=== PATIENT | female | born 1980 | race Hispanic/Latino ===

== ENCOUNTER 2017-11-18 08:14 | Emergency (ER) | payer OTHER ==
[2017-11-18] MEDS ORDERED: TETANUS & DIPHTHERIA TOX,ADULT 0.5 ML VIAL ONE (08:58)
[2017-11-18] MEDS ORDERED: IBUPROFEN 400 MG TAB ONE (09:25)
--- NOTE | 2017-11-18 09:26 | EDPHYS ---
Physician Documentation [facility] Name: Maria Esther Das Age: 37 yrs Sex: Female : 1980 Arrival Date: 11/18/2017 Time: 08:19 Bed 20 Private MD: ED Physician Syed Philip HPI: 11/18 08:52 This 37 yrs old Female presents to ER via Ambulatory with complaints of jr8 Puncture To Foot. 08:52 The patient has a laceration occurred outdoors. The laceration(s) is(are) located on jr8 the left foot. Onset: The symptoms/episode began/occurred acutely, yesterday. Associated signs and symptoms: The patient has no apparent associated signs or symptoms. The patient has not experienced similar symptoms in the past. The patient has not recently seen a physician. Patient stated that she was walking out in yard cleaning up debris. Stated that she felt nail go through shoe and into foot . 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 - Social history:: Smoking status: Patient/guardian denies using tobacco. ROS: 08:52 Eyes: Negative for injury, pain, redness, and discharge, ENT: Negative for injury, jr8 pain, and discharge, Neck: Negative for injury, pain, and swelling, Cardiovascular: Negative for chest pain, palpitations, and edema, Respiratory: Negative for shortness of breath, cough, wheezing, and pleuritic chest pain, Abdomen/GI: Negative for abdominal pain, nausea, vomiting, diarrhea, and constipation, Back: Negative for injury and pain, Skin: Negative for injury, rash, and discoloration, Neuro: Negative for headache, weakness, numbness, tingling, and seizure. 08:52 MS/extremity: Positive for decreased range of motion, pain, puncture, swelling, tenderness, of the left foot. Exam: 08:52 Cardiovascular: Regular rate and rhythm with a normal S1 and S2. No gallops, murmurs, jr8 or rubs. Normal PMI, no JVD. No pulse deficits. Respiratory: Lungs have equal breath sounds bilaterally, clear to auscultation and percussion. No rales, rhonchi or wheezes noted. No increased work of breathing, no retractions or nasal flaring. Skin: Warm, dry with normal turgor. Normal color with no rashes, no lesions, and no evidence of cellulitis. Neuro: Awake and alert, GCS 15, oriented to person, place, time, and situation. Cranial nerves II-XII grossly intact. Motor strength 5/5 in all extremities. Sensory grossly intact. Cerebellar exam normal. Normal gait. 08:52 Musculoskeletal/extremity: Extremities: grossly normal except: noted in the left foot: puncture noted to bottom of left foot near forefoot. No exit wound. Moderate tenderness to foot. Swelling noted , ROM: intact in all extremities, full active range of motion, full passive range of motion, limited active range of motion due to pain, limited passive range of motion due to pain, Circulation is intact in all extremities. Sensation intact. Vital Signs: 08:53 BP 118 / 82; Pulse 86; Resp 18; Pulse Ox 100% on R/A; Weight 76.2 kg; Height 5 ft. 3 em in. (160.02 cm); Pain 8/10; 09:50 BP 116 / 75; Pulse 84; Resp 18; Temp 97.6(TE); Pulse Ox 97% on R/A; Pain 8/10; em 08:53 Body Mass Index 29.76 (76.20 kg, 160.02 cm) em MDM: 08:38 Patient medically screened. jr8 09:24 Data reviewed: vital signs, nurses notes, radiologic studies, plain films, and as a jr8 result, I will discharge patient. Data interpreted: Pulse oximetry: on room air is 100 %. Interpretation: normal. Counseling: I had a detailed discussion with the patient and/or guardian regarding: the historical points, exam findings, and any diagnostic results supporting the discharge/admit diagnosis, radiology results, the need for outpatient follow up, a electronic test technician, to return to the emergency department if symptoms worsen or persist or if there are any questions or concerns that arise at home. ED course: Discussed with patient that she will need close follow up with podiatry. If she gets worse to come back for further evaluation . 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 Exp: em 02/24/2020. Lot #: [id number]. } Route: IM; Site: right deltoid; 09:28 Follow up: Response: No adverse reaction em 09:30 Drug: Ibuprofen 800 mg Route: PO; em 09:55 Follow up: Response: No adverse reaction em Disposition: 10:09 Co-signature as Attending Physician, Syed Philip MD I agree with the assessment and kdr plan of care. Disposition: 11/18/17 09:26 Discharged to Home. Impression: Puncture wound without foreign body, left foot. - Condition is Stable. - Discharge Instructions: Puncture Wound. - Prescriptions for Clindamycin HCl 300 mg Oral Capsule - take 1 capsule by ORAL route every 6 hours for 10 days; 40 capsule. Levaquin 500 mg Oral Tablet - take 1 tablet by ORAL route once daily for 7 days; 7 tablet. Tylenol- Codeine #3 300-30 mg Oral Tablet - take 2 tablet by ORAL route every 6 hours As needed; 30 tablet. - Medication Reconciliation Form, Thank You Letter, Antibiotic Education, Prescription Opioid Use form. - Follow up: Raul Tong DPM; When: 2 - 3 days; Reason: Wound Recheck, Recheck today's complaints, Continuance of care, Re-evaluation by your physician. - Problem is new. - Symptoms have improved. Signatures: Dispatcher [employer] EDSyed Gomes MD MD kdr Munoz, Edgar, AGRONOMY PROFESSOR AGRONOMY PROFESSOR Jah Hawkins PA PA jr8 Aurelio Jansen, RN RN hj
--- NOTE | 2017-11-18 09:26 | ER ---
Nurse's Notes [facility] Name: Maria Esther Das Age: 37 yrs Sex: Female : 1980 Arrival Date: 11/18/2017 Time: 08:19 Bed 20 Private MD: Diagnosis: Puncture wound without foreign body, left foot Presentation: 11/18 08:50 Presenting complaint: Patient states: stepped on nail last night at 1800 with left em foot, was wearing footwear, c/o pain now. Transition of care: patient was not received from another setting of care. Complicating Factors: There are no complicating factors for this patient. Onset of symptoms was November 17, 2017. Initial Sepsis Screen: Does the patient meet any 2 criteria? No. Patient's initial sepsis screen is negative. Does the patient have a suspected source of infection? No. Patient's initial sepsis screen is negative. Care prior to arrival: None. 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 - Social history:: Smoking status: Patient/guardian denies using tobacco. Screenin:52 Abuse screen: Denies threats or abuse. Nutritional screening: No deficits noted. em Tuberculosis screening: No symptoms or risk factors identified. Fall Risk None identified. Assessment: 08:50 General: Appears in no apparent distress. uncomfortable, Behavior is calm, cooperative. em Pain: Complains of pain in left foot Pain does not radiate. Pain currently is 8 out of 10 on a pain scale. Quality of pain is described as sharp, pulsating. Neuro: Level of Consciousness is awake, alert, obeys commands, Oriented to person, place, time, situation. Cardiovascular: Capillary refill < 3 seconds Patient's skin is warm and dry. Respiratory: Airway is patent Respiratory effort is even, unlabored, Respiratory pattern is regular, symmetrical. GI: Abdomen is flat. : No signs and/or symptoms were reported regarding the genitourinary system. EENT: No signs and/or symptoms were reported regarding the EENT system. Derm: Skin is intact, Skin is pink, warm \T\ dry. Musculoskeletal: Capillary refill < 3 seconds, Range of motion: intact in all extremities. Injury Description: Laceration is clean, 0.5 to 2.5 cm long, not bleeding. 09:00 Reassessment: Patient appears in no apparent distress at this time. I agree with above iw assessment by Dariel Jean LVN. Vital Signs: 08:53 BP 118 / 82; Pulse 86; Resp 18; Pulse Ox 100% on R/A; Weight 76.2 kg; Height 5 ft. 3 em in. (160.02 cm); Pain 8/10; 09:50 BP 116 / 75; Pulse 84; Resp 18; Temp 97.6(TE); Pulse Ox 97% on R/A; Pain 8/10; em 08:53 Body Mass Index 29.76 (76.20 kg, 160.02 cm) em ED Course: 08:19 Patient arrived in ED. rg4 08:38 Jah Hawkins PA is PHCP. jr8 08:38 Syed Philip MD is Attending Physician. jr8 08:50 Dariel Jean LVN is Primary Nurse. em 08:50 No provider procedures requiring assistance completed. Patient did not have IV access em during this emergency room visit. 09:19 XRAY Foot LEFT 3 View In Process Unspecified. EDMS 09:21 X-ray completed. Portable x-ray completed in exam room. Patient tolerated procedure mh1 well. 09:25 Raul Tong DPM is Referral Physician. jr8 09:50 Crutch training done. Wound care: located on left foot was cleaned with Hibiclens, em dressed with Neosporin, 4X4s, Kerlix, Patient tolerated well. 09:53 Arm band placed on. em 09:53 Patient has correct armband on for positive identification. Bed in low position. Call em light in reach. 14:41 Triage completed. 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 Exp: em 02/24/2020. Lot #: [id number]. } Route: IM; Site: right deltoid; 09:28 Follow up: Response: No adverse reaction em 09:30 Drug: Ibuprofen 800 mg Route: PO; em 09:55 Follow up: Response: No adverse reaction em Outcome: 09:26 Discharge ordered by MD. chin 09:54 Discharged to home via wheelchair. em 09:54 Condition: good 09:54 Discharge instructions given to patient, Instructed on discharge instructions, follow up and referral plans. medication usage, Demonstrated understanding of instructions, follow-up care, medications, Prescriptions given X 3. 09:58 Patient left the ED. hj Signatures: Dispatcher [employer] EDCA Mandy De Jesus 1 Dariel Jean, [employer] VICE PRESIDENT [employer] Kaelyn West, RN Jah Gillespie PA PA jr8 Aurelio Jansen RN RN hj Garcia, Rubi rg4 Corrections: (The following items were deleted from the chart) 08:52 08:50 Presenting complaint: Patient states: stepped on nail last night at 1800, was em wearing footwear, c/o pain now em
--- NOTE | 2017-11-18 10:28 | RAD REPORT ---
EXAM DESCRIPTION: RAD - Foot Left 3 View - 11/18/2017 9:19 am CLINICAL HISTORY: Foot pain, puncture wound plantar surface COMPARISON: None. FINDINGS: No fracture, dislocation or periosteal reaction. No acute or destructive bony process. No air or foreign body in the soft tissues. Minimal spur at the Achilles attachment. IMPRESSION: No fracture or acute bone finding. No foreign body.
== END 2017-11-18 09:58 | disposition home or self-care (01) ==
LOC: ER 08:14
DX: S91.332A Puncture wound without foreign body, left foot, initial encounter (principal); W45.0XXA Nail entering through skin, initial encounter; Y93.9 Activity, unspecified; Y92.9 Unspecified place or not applicable
CPT/HCPCS: 90714; 99284